=== PATIENT | male | born 1975 | race Caucasian/White ===

== ENCOUNTER 2016-11-08 10:00 | Outpatient (RCR) | payer OTHER | END 2017-01-06 | disposition home or self-care (01) | LOC: PT | DX: Z47.89 Encounter for other orthopedic aftercare (principal) ==

== ENCOUNTER 2017-01-24 15:07 | Outpatient (RCR) | payer OTHER | END 2017-02-25 14:37 | disposition home or self-care (01) | LOC: PT 15:07 | DX: Z47.89 Encounter for other orthopedic aftercare (principal) ==

== ENCOUNTER → 2017-06-18 | Outpatient (CLI) | payer OTHER | LOC: RAD 10:30 | DX: R10.32 Left lower quadrant pain (principal) | CPT/HCPCS: Q9967 ==

== ENCOUNTER → 2017-08-19 | Outpatient (CLI) | payer OTHER | LOC: LAB 12:03 | DX: R19.7 Diarrhea, unspecified (principal); R10.9 Unspecified abdominal pain ==

== ENCOUNTER → 2017-08-20 | Day surgery (SDC) | payer OTHER | LOC: MSO 14:12 | DX: K21.9 Gastro-esophageal reflux disease without esophagitis (principal); K44.9 Diaphragmatic hernia without obstruction or gangrene; K20.9 Esophagitis, unspecified; R19.7 Diarrhea, unspecified; R10.32 Left lower quadrant pain; I10 Essential (primary) hypertension; E78.5 Hyperlipidemia, unspecified; J45.909 Unspecified asthma, uncomplicated; F17.290 Nicotine dependence, other tobacco product, uncomplicated; G47.33 Obstructive sleep apnea (adult) (pediatric); F41.9 Anxiety disorder, unspecified | CPT/HCPCS: 00810; A4649; J3010; J7120 ==

== ENCOUNTER → 2020-11-09 | Outpatient (CLI) | payer BC | LOC: AMSURD 08:45 | DX: R07.9 Chest pain, unspecified (principal); Z86.16 Personal history of COVID-19 ==

== ENCOUNTER → 2024-07-24 | Outpatient (CLI) | payer BC, OTHER | LOC: RAD 09:00 | DX: R10.11 Right upper quadrant pain (principal) ==